=== PATIENT | male | born 1990 | race African-American/Black ===

== ENCOUNTER 2021-03-13 21:44 | Emergency (ER) | payer OTHER ==
--- NOTE | 2021-03-13 22:11 | ED Physician Documentation ---
History of Present Illness - Stated complaint Stated Complaint: MIGRANE - Chief complaint Chief Complaint: Heent - History obtained from History obtained from: Patient - Additonal information Additional information: 30yM with pmh migraines p/w R sided frontal headache radiating to the back gradual onset around noon today, constant, 8/10, unrelieved with imitrex and naproxen, worse with bright light and sound, a/w nausea. denies head injury, fever, confusion, dizziness, vision changes. Review of Systems Ten Systems: 10 systems reviewed and negative Constitutional: denies: Fever, Chills GI: reports: Nausea. denies: Vomiting Neurologic: reports: Headache PD PAST MEDICAL HISTORY - Present Medications Home Medications: Ambulatory Orders Medication Instructions Recorded Confirmed Erenumab-Aooe [Aimovig 03/13/21 Autoinjector] Escitalopram [Lexapro] 03/13/21 Naproxen 03/13/21 Nortriptyline [Pamelor] 03/13/21 Sumatriptan Succinate [Imitrex] 03/13/21 Topiramate [Topamax] 03/13/21 - Allergies Allergies/Adverse Reactions: Allergies Allergy/AdvReac Type Severity Reaction Status Date / Time No Known Drug Allergies Allergy Verified 03/13/21 22:00 PD ED PE NORMAL - Vitals Vital signs reviewed: Yes - General General: Alert and oriented X 3, No acute distress, Well developed/nourished - HEENT HEENT: Atraumatic, PERRL, EOMI, Moist mucous membranes, Pharynx benign - Neck Neck: Supple, no meningeal sign - Derm Derm: Normal color, Warm and dry - Extremities Extremities: No deformity - Neuro Neuro: Alert and oriented X 3, clean out driller helper 2-12 intact, No motor deficit, No sensory deficit, Normal speech Eye Opening: Spontaneous Motor: Obeys Commands Verbal: Oriented GCS Score: 15 - Psych Psych: Normal mood, Normal affect Results - Vitals Vitals: Vital Signs - 24 hr 03/13/21 21:53 Temperature 36 C L Heart Rate 81 Respiratory 20 Rate Blood Pressure 117/79 O2 Saturation 100 Oxygen O2 Source Room air PD MEDICAL DECISION MAKING - ED course ED course: 30yM p/w migraine headache, c/w his usual migraines but worse than usual. symptom relief provided. patient will f/u with pmd. return precautions given. Departure - Departure Clinical Impression: Headache, Nausea, Photophobia Condition: Stable Instructions: ED Headache Migraine Comments: You were seen in the emergency department for migraine headache and received a cocktail of medications for symptom relief. Please follow up with your doctor and return to the ED if you have new or worsening symptoms or other concerns.
[2021-03-13] MEDS: SODIUM CHLORIDE 0.9% 1,000 ML IV STA (22:23)
[2021-03-13] MEDS: METOCLOPRAMIDE 10 MG/2 ML VIAL IVP STA (22:23)
[2021-03-13] MEDS: KETOROLAC 15 MG/ML VIAL IVP STA (22:23)
[2021-03-13] MEDS: diphenhydrAMINE INJ 50 MG/ML VIAL IVP STA (22:24)
[2021-03-13] MEDS: ACETAMINOPHEN 325 MG TABLET PO STA (22:24)
[2021-03-14 00:24] VITALS: BP 114/70
== END 2021-03-14 00:39 | disposition home or self-care (01) ==
LOC: ED 21:44
DX: G43.909 Migraine, unspecified, not intractable, without status migrainosus (principal); R11.0 Nausea; H53.149 Visual discomfort, unspecified
CPT/HCPCS: 96374; 96375; 99283; A9270; J1200; J2765

== ENCOUNTER 2021-11-14 10:44 | Emergency (ER) | payer OTHER ==
--- NOTE | 2021-11-14 11:08 | ED Physician Documentation ---
PD HPI HEADACHE - Stated complaint Stated Complaint: MIGRAINE - Chief complaint Chief Complaint: Neuro - History obtained from History obtained from: Patient - History of Present Illness Timing - onset: How many days ago (2) Timing - onset during: Rest, Light activity Timing - duration: Days (2) Timing - details: Gradual onset, Still present, Waxing and waning (improved briefly with home migraine meds but then returned.) Worst headache ever?: No: Worst headache ever? Location: Left Quality: Throbbing, Aching Associated symptoms: Nausea. No: Fever, Stiff neck, Vomiting, Weakness, Numbness Improved by: Dark room. No: Meds (usually improved with sumatryptan and zofran. Tried those without resolution this time.) Worsened by: Light, Noise Contributing factors: No: Recent illness, Trauma Similar symptoms before: Diagnosis (migraines about every month.) Recently seen: Clinic (seen by Neurologist today and got Rx for different tryptan. referred to ER for the status migraine.) Review of Systems Constitutional: denies: Fever, Chills Nose: denies: Rhinorrhea / runny nose, Congestion Throat: denies: Sore throat Respiratory: denies: Cough PD PAST MEDICAL HISTORY - Past Medical History Neuro: Migraines - Present Medications Home Medications: Ambulatory Orders Medication Instructions Recorded Confirmed Erenumab-Aooe [Aimovig 70 mg SQ PRN PRN 03/13/21 11/14/21 Autoinjector] Escitalopram [Lexapro] 10 mg PO DAILY 03/13/21 11/14/21 Naproxen 500 mg PO BID PRN 03/13/21 11/14/21 Nortriptyline [Pamelor] 50 mg PO QPM 03/13/21 11/14/21 Sumatriptan Succinate [Imitrex] 100 mg PO BID 03/13/21 11/14/21 Topiramate [Topamax] 100 mg PO BID 03/13/21 11/14/21 - Allergies Allergies/Adverse Reactions: Allergies Allergy/AdvReac Type Severity Reaction Status Date / Time No Known Drug Allergies Allergy Verified 03/13/21 22:00 - Social History Does the pt smoke?: No Smoking Status: Never smoker Does the pt drink ETOH?: Yes PD ED PE NORMAL - Vitals Vital signs reviewed: Yes - General General: Alert and oriented X 3, Well developed/nourished, Other (appears uncomfortable. Light sensitive. ) - HEENT HEENT: Atraumatic, PERRL (light sensitive), EOMI - Neck Neck: Supple, no meningeal sign, No adenopathy - Cardiac Cardiac: RRR, No murmur - Respiratory Respiratory: Clear bilaterally - Derm Derm: Normal color, Warm and dry - Neuro Neuro: Alert and oriented X 3, card stripper 2-12 intact, No motor deficit, No sensory deficit, Normal speech Eye Opening: Spontaneous Motor: Obeys Commands Verbal: Oriented GCS Score: 15 - Psych Psych: Normal mood, Normal affect Results - Vitals Vitals: Oxygen O2 Source Room air PD MEDICAL DECISION MAKING - ED course Complexity details: re-evaluated patient (headache mostly gone. Sleepy from meds. Has ride. ), considered differential (seems like migraine that has persisted despite home meds.), d/w patient Departure - Departure Disposition: 01 Home, Self Care Clinical Impression: Status migrainosus Condition: Stable Record reviewed to determine appropriate education?: Yes Instructions: ED Headache Migraine Comments: Home and rest today. Continue usual medications at home. Tylenol if needed for pains. Return if needed for recurrent or sustained migraine. We did give a dose of a steroid medication here to that we will try to reduce the chance of rebound over the next few days. Forms: Activity restrictions Discharge Date/Time: 11/14/21 13:11
[2021-11-14] MEDS ORDERED: diphenhydrAMINE INJ 50 MG/ML VIAL IVP STA (11:17)
[2021-11-14] MEDS ORDERED: SODIUM CHLORIDE 0.9% 1,000 ML IV STA (11:17)
[2021-11-14] MEDS ORDERED: DEXAMETHASONE 10 MG/ML VIAL IVP STA (11:17)
[2021-11-14] MEDS ORDERED: KETOROLAC 15 MG/ML VIAL IVP STA (11:17)
[2021-11-14] MEDS ORDERED: PROCHLORPERAZINE 10 MG/2 ML VIAL IVP STA (11:17)
[2021-11-14 13:11] VITALS: BP 130/78
== END 2021-11-14 13:11 | disposition home or self-care (01) ==
LOC: ED 10:44
DX: G43.911 Migraine, unspecified, intractable, with status migrainosus (principal)
CPT/HCPCS: 96374; 96375; 99284; 99285; J1200